=== PATIENT | female | born 1950 | race Caucasian/White ===

== ENCOUNTER 2024-08-23 09:07 | Outpatient (AMB) | payer OTHER, MEDICAID, SELFPAY ==
[2024-08-23 09:46] VITALS: BP 154/51; PULSE 72; RESP 18; TEMP 36.3; O2SAT 98; BMI 29.3
--- NOTE | 2024-08-23 09:46 | ORTHONT_ITS ---
Vital signs 08/23/24 09:46 Height 1.47 m Height Method Measured Weight 63.701 kg Weight Measurement Method Standing Scale BMI 29.3 BP 154/51 H Blood Pressure Source Automatic Cuff Blood Pressure Location Left Upper Arm Position Sitting Respiration 18 Pulse 72 Pulse Source Monitor Temp 97.3 F Temp Source Temporal Artery Scan Pulse Oximetry (%) 98 Oxygen Delivery Method Room Air Med/Allergies Allergies & Medications Allergies No Known Drug Allergies Allergy (Verified 08/23/24 09:47) Medication Reconciliation atorvastatin 20 mg tablet 20 mg PO QDAY 08/23/24 [History Confirmed 08/23/24] cholecalciferol (vitamin D3) 10 mcg (400 unit) capsule 10 mcg PO QDAY 08/23/24 [History Confirmed 08/23/24] empagliflozin 25 mg tablet (Jardiance) 25 mg PO QAM 08/23/24 [History Confirmed 08/23/24] metformin 1,000 mg tablet 1,000 mg PO QDAY 08/23/24 [History Confirmed 08/23/24] omeprazole 20 mg capsule,delayed release 20 mg PO QDAY 08/23/24 [History Confirmed 08/23/24] oxycodone-acetaminophen 5 mg-325 mg tablet 1 tab PO Q6H PRN 08/23/24 [History Confirmed 08/23/24] semaglutide 1 mg/dose (4 mg/3 mL) subcutaneous pen injector (Ozempic) 1 mg subcut QWEEK 08/23/24 [History Confirmed 08/23/24] Exam Exam Patient is in no acute distress and is cooperative with the examination today. Breathing is nonlabored. Patient has a normal mood and affect. The patient has a gait that is nonantalgic Bilateral extremities were evaluated and demonstrates sensation intact to light touch. Palpable pedal pulses are present. No significant edema is present. Bilateral hips were examined. The patient has no pain with log roll of the hips. Internal rotation to 30 degrees and external rotation to 30 degrees is painless. Negative FADIR. Left knee was examined today. The left knee is in reasonable alignment. Range of motion from 0-120 degrees. Knee is stable to varus and valgus as well as AP translation with <5mm. Patient has a negative McMurrays. There is no pain with patellofemoral compression and no crepitus noted. The knee is nontender to palpation. The right knee was also examined. The right knee is in neutral alignment. Range of motion from 0-120 degrees. Knee is stable to varus and valgus as well as AP translation with <5mm. Patient has a negative McMurrays.Incision is clean dry and intact Images from [facility] from October 2023 were reviewed by me today. Demonstrates a hinged knee replacement in good alignment position Assessment and Plan Problem List (1) History of total right knee replacement: Status: Acute Plan: Patient is a pleasant 74-year-old female with a right total knee replacement done 2 years ago. She reports radicular pain that starts in the buttocks and goes to her toes for the last 2 months. I do think this is likely from the spine. We will get also get new knee x-rays to rule out the knee replacement as a cause of the pain. 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 Intake Visit Data Collection New Patient or Established: New Patient (never been to [facility]) Reason for Visit:: KNEE PAIN Seen by Clinical Staff ONLY (RN/MA): No Verbal consent obtained for Telemed visit?: No 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 She reports the leg pain started approximately 2 months ago. She had a right knee replacement with Dr. Hutton. to correct significant deformity and pain 2 years ago. She did well until recently.She describes the pain as numbness and tingling. The pain starts in the buttocks and goes all the way down to the foot Personal History Occupation: RETIRED Red flag PMH: BMI BMI Counceling provided: Yes Pain Pain level (0-10): 6 Pain duration: COMES AND GOES Pain location: inside (medial), outside (lateral), anterior and posterior Pain quality: sharp, dull and aching Pain timing: increases with activity Associated signs & symptoms: stiffness Ambulatory data Ambulatory device: cane Treatments Improvement with previous injections: No Improvement with PT: No Improvement with NSAIDS: no Review of Systems Review of Systems: All systems negative unless otherwise noted in HPI.
--- NOTE | 2024-08-23 10:05 | XR_ITS ---
Examination: Lumbar spine 3 views Technique one AP lateral coned lateral lower lumbar spine 3 views Exam date and time: August 23, 2024 1017 hours INDICATIONS: Low back pain beginning 3 years ago. FINDINGS: Prominent osteopenia Lumbar levoscoliosis 15 degrees No lumbar fracture Moderate lumbar spondylosis Diffuse lumbar disc narrowing, moderate No spondylolisthesis IMPRESSION: Diffuse moderate lumbar degenerative disc disease
--- NOTE | 2024-08-23 10:05 | XR_ITS ---
Examination: Right knee 4 views TECHNIQUE: Standing AP oblique lateral axial right knee 4 views Exam date and time: August 23, 2024 1029 hours INDICATIONS: Right knee pain beginning 3 months ago right knee surgery 2 years ago. FINDINGS: Total right knee arthroplasty Satisfactory alignment No patellar dislocation IMPRESSION: Total right knee arthroplasty with satisfactory alignment
== END 2024-08-23 10:09 | disposition home or self-care (01) ==
PROVIDERS: PCP Internal Medicine; Referring Provider Internal Medicine; Supervising Provider Orthopaedic Surgery Adult Reconstructive Orthopaedic Surgery; Visit Provider Orthopaedic Surgery Adult Reconstructive Orthopaedic Surgery
DX: Z96.651 Presence of right artificial knee joint (principal); M51.369 Other intervertebral disc degeneration, lumbar region without mention of lumbar back pain or lower extremity pain
CPT/HCPCS: 72100; 73564; 99203; G0463

== ENCOUNTER 2024-09-05 09:22 | Outpatient (AMB) | payer OTHER, MEDICAID, SELFPAY ==
--- NOTE | 2024-09-05 09:57 | ORTHONT_ITS ---
Vital signs 09/05/24 09:58 Height 1.47 m Height Method Stated Weight 64.58 kg Weight Measurement Method Standing Scale BMI 29.9 BP 159/76 H Blood Pressure Source Automatic Cuff Blood Pressure Location Right Upper Arm Position Sitting Respiration 17 Pulse 58 L Pulse Source Monitor Temp 97.5 F Temp Source Temporal Artery Scan Pulse Oximetry (%) 95 Oxygen Delivery Method Room Air Med/Allergies Allergies & Medications Allergies No Known Drug Allergies Allergy (Verified 09/05/24 09:59) Medication Reconciliation atorvastatin 20 mg tablet 20 mg PO QDAY 08/23/24 [History Confirmed 09/05/24] cholecalciferol (vitamin D3) 10 mcg (400 unit) capsule 10 mcg PO QDAY 08/23/24 [History Confirmed 09/05/24] empagliflozin 25 mg tablet (Jardiance) 25 mg PO QAM 08/23/24 [History Confirmed 09/05/24] metformin 1,000 mg tablet 1,000 mg PO QDAY 08/23/24 [History Confirmed 09/05/24] omeprazole 20 mg capsule,delayed release 20 mg PO QDAY 08/23/24 [History Confirmed 09/05/24] oxycodone-acetaminophen 5 mg-325 mg tablet 1 tab PO Q6H PRN 08/23/24 [History Confirmed 09/05/24] semaglutide 1 mg/dose (4 mg/3 mL) subcutaneous pen injector (Ozempic) 1 mg subcut QWEEK 08/23/24 [History Confirmed 09/05/24] Exam Exam Patient is in no acute distress and is cooperative with the examination today. Breathing is nonlabored. Patient has a normal mood and affect. The patient has a gait that is nonantalgic Bilateral extremities were evaluated and demonstrates sensation intact to light touch. Palpable pedal pulses are present. No significant edema is present. Bilateral hips were examined. The patient has no pain with log roll of the hips. Internal rotation to 30 degrees and external rotation to 30 degrees is painless. Negative FADIR. Left knee was examined today. The left knee is in reasonable alignment. Range of motion from 0-120 degrees. Knee is stable to varus and valgus as well as AP translation with <5mm. Patient has a negative McMurrays. There is no pain with patellofemoral compression and no crepitus noted. The knee is nontender to palpation. The right knee was also examined. The right knee is in neutral alignment. Range of motion from 0-120 degrees. Knee is stable to varus and valgus as well as AP translation with <5mm. Patient has a negative McMurrays.Incision is clean dry and intact Images from [facility] from October 2023 were reviewed by me today. Demonstrates a hinged knee replacement in good alignment position Assessment and Plan Problem List (1) History of total right knee replacement: Status: Acute Plan: Patient is a pleasant 74-year-old female with a right total knee replacement done 2 years ago. She reports radicular pain that starts in the buttocks and goes to her toes for the last 2 months. I do think this is likely from the spine. We will get an MRI to workup the spine and likely recommend referral after knee replacement as her knee replacement looks good Advanced Care Planning Discussion Advance care planning discussed with:: patient Office Procedures GNS Level of Care Nursing/Assessment Patient Status: Established Patient Nursing Assessment/Reassesment: Medication Reconciliation, Update PMH in EMR and Vital Signs Coordination of Care: Complex Care and Chronic Disease 1-5, Consent,records obtained, informed consent, Education Simp Pt/Fam, Results/Orders obtained and Staff clarify orders Established Patient Charge Established Patient Point Assignment: 90 Established Patient Point Charge: EP Level 3 (80-115) MA Intake Visit Data Collection New Patient or Established: Established Patient (seen at [facility] within 3 years) Reason for Visit:: XRAY FU-RT KNEE Seen by Clinical Staff ONLY (RN/MA): No Rn Document Improvement Specialist Required: No PCP or OBGYN visit in last 3 months: Yes Hx Now: No Do You Feel Safe at Home: Yes Authorities Contacted: N/A Questionairres Past Medical History Past Medical History Have you ever been diagnosed with any of the following: Respiratory Problems Smoking: No Smoking Cessation Counseling: No Smoking Exposure: No Tobacco Use: No Subjective Visit Visit for: follow up visit and knee (RT KNEE ) Immunization / Flu Flu Vaccine in the Last 12 Months: Yes Flu Vaccine Exclusion Criteria: Already Received History of Present Illness Chief complaint: KNEE PAIN Date of 1st surgery (if applicable): 2 YEARS AGO Yanci is a pleasant 74-year-old female with right leg pain. She reports the leg pain started approximately 2 months ago. She had a right knee replacement with Dr. Bretthauer. to correct significant deformity and pain 2 years ago. She did well until recently.She describes the pain as numbness and tingling. The pain starts in the buttocks and goes all the way down to the foot Personal History Occupation: RETIRED Red flag PMH: none BMI Counceling provided: Yes Pain Pain level (0-10): 8 Pain duration: 3 MONTHS Pain location: anterior Pain quality: sharp, burning and shocking Pain timing: night and increases with activity Associated signs & symptoms: none Ambulatory data Ambulatory device: none Walking distance (minutes): 15 Treatments Number of previous injections: 0 Improvement with previous injections: No Number of Physical Therapy sessions: 10 Improvement with PT: Yes Improvement with NSAIDS: n/a Review of Systems Review of Systems: All systems negative unless otherwise noted in HPI.
[2024-09-05 09:58] VITALS: BP 159/76; PULSE 58; RESP 17; TEMP 36.4; O2SAT 95; BMI 29.9
== END 2024-09-05 10:35 | disposition home or self-care (01) ==
LOC: HODSRG 09:22
PROVIDERS: PCP Internal Medicine; Referring Provider Internal Medicine; Supervising Provider Orthopaedic Surgery Adult Reconstructive Orthopaedic Surgery; Visit Provider Orthopaedic Surgery Adult Reconstructive Orthopaedic Surgery
DX: Z96.651 Presence of right artificial knee joint (principal); M79.604 Pain in right leg; R20.0 Anesthesia of skin; R20.2 Paresthesia of skin
CPT/HCPCS: 99213; G0463